=== PATIENT | female | born 1960 | race African-American/Black ===

== ENCOUNTER 2016-12-27 10:19 | Inpatient (IN) | payer MEDICAID ==
[~2016-12-27] VITALS: Ht 167.6 cm; Wt 97.2 kg
[~2016-12-27 10:19] MED LIST: ALBU6.7H INH; AMLO10TA80 PO; ASPI-1158 PO; COR25 PO; FURO-151 PO; FURO40TA5 PO; HYDR100T26 PO; INSU3INS6 SUBCUT; NIFE60TA64 PO; NITR0.4T SL; PANT40TA4 PO; POTA20TA82 PO; SPIR25TA PO; SPIR25TA4 PO
[2016-12-27] MEDS ORDERED: FUROSEMIDE 40MG/4ML VIAL IV STA (11:52)
[2016-12-27] MEDS ORDERED: ASPIRIN 81MG TABLET PO STA (11:52)
[2016-12-27] MEDS ORDERED: NITROGLYCERIN OINT 1GM/INCH UDPKT TD STA (11:52)
[2016-12-27 12:15] LABS: EOSINOPHILS % 0.8 % (0.0-5.0); HEMATOCRIT. 41.8 % (36.0-48.0); HEMOGLOBIN. 13.2 g/dL (12.0-16.0); LYMPHOCYTES % 39.5 % (20.0-50.0); MEAN CORPUSCULAR HEMOGLOBIN 24.5 pg (28.0-32.0); MEAN CORPUSCULAR VOLUME 77.6 fL (81.0-99.0); MEAN PLATELET VOLUME 11.1 fl (7.4-10.4); MONOCYTES % 5.6 % (2.0-8.0); NEUTROPHILS % 53.1 % (40.0-76.0); PLATELET 122 x1000/uL (130-400); RED BLOOD CELL COUNT 5.39 mill/uL (4.2-5.4); RED CELL DISTRIBUTION WIDTH 17.3 % (11.6-14.6)
[2016-12-27 12:20] LABS: CHLORIDE 105 mEq/L (98-107)
[2016-12-27 12:26] LABS: CARBON DIOXIDE 30 mEq/L (21-32)
[2016-12-27 12:31] LABS: TROPONIN I 0.05 ng/mL (0.00-0.04)
[2016-12-27 12:56] LABS: INR 1.1; PARTIAL THROMBOPLASTIN TIME 23.1 sec (23.4-31.0); PROTHROMBIN TIME 11.4 sec (9.4-11.6)
[2016-12-27] MEDS ORDERED: CLONIDINE 0.2MG TABLET PO ONE (14:45)
[2016-12-27] MEDS ORDERED: HYDROCODONE/ACETAMINOPHEN 5/325MG TABLET PO ONE (14:45)
[2016-12-27] MEDS ORDERED: HYDRALAZINE 20MG/ML VIAL IV ONE ×2 (16:30→17:15)
[2016-12-27 18:25] VITALS: BP 152/96
[2016-12-27] MEDS ORDERED: ACETAMINOPHEN 325MG TABLET PO PRN (19:45)
[2016-12-27] MEDS ORDERED: ENOXAPARIN 40MG/0.4ML SYR SUBCUT SCH (19:45)
[2016-12-27] MEDS ORDERED: ONDANSETRON HCL 4MG/2ML VIAL IV PRN (19:45)
[2016-12-27] MEDS ORDERED: HYDROCODONE/ACETAMINOPHEN 5/325MG TABLET PO PRN (19:45)
[2016-12-27] MEDS ORDERED: MAGNESIUM/ALUMINUM HYDROXIDE/SIMETHICONE 30ML UDC PO PRN (19:45)
[2016-12-27] MEDS ORDERED: IPRATROPIUM/ALBUTEROL 0.5-3(2.5)MG/3ML NEB INH PRN (19:45)
[2016-12-27] MEDS ORDERED: CLONIDINE 0.1MG TABLET PO PRN (19:45)
[2016-12-27 20:00] VITALS: BP 181/119
[2016-12-27] MEDS ORDERED: NITROGLYCERIN 0.4MG TABLET SL SL PRN ×2 (20:15→23:30)
[2016-12-27] MEDS ORDERED: DEXTROSE 50% WATER 50ML SYRINGE IV PRN (20:45)
[2016-12-27] MEDS: INSULIN LISPRO 100 UNITS/ML SUBCUT SCH (21:00)
[2016-12-27] MEDS: ASPIRIN 81MG EC TABLET PO SCH (21:09)
[2016-12-27] MEDS: SPIRONOLACTONE 25MG TABLET PO SCH (21:09)
[2016-12-27] MEDS: NIFEDIPINE XL 60MG TAB PO SCH (21:09)
[2016-12-27] MEDS: CARVEDILOL 25MG TABLET PO SCH (21:09)
[2016-12-27] MEDS: HYDRALAZINE HCL 100MG TABLET PO SCH (21:10)
[2016-12-27] MEDS: POTASSIUM CHLORIDE 20MEQ TABLET SR PO SCH (21:10)
[2016-12-27] MEDS: ENOXAPARIN 30MG/0.3ML SYR SUBCUT SCH (21:10)
[2016-12-27] MEDS: BLOOD SUGAR DIAGNOSTIC STRIP TEST SCH (21:11)
[2016-12-27 21:14] VITALS: BP 171/122
[2016-12-27 22:00] VITALS: BP 161/103
[2016-12-27] MEDS ORDERED: HYDRALAZINE 20MG/ML VIAL IV PRN (23:00)
[2016-12-27 23:28] LABS: CREATINE KINASE MB FRACTION 2.4 ng/mL (0.5-3.6); TROPONIN I 0.04 ng/mL (0.00-0.04)
[2016-12-28] VITALS (13 sets, daily range): BP systolic 110–135; BP diastolic 64–97
[2016-12-28 01:09] LABS: CLARITY URINE CLEAR (CLEAR); COLOR URINE YELLOW (YELLOW); GLUCOSE URINE NEGATIVE (NEGATIVE); KETONES URINE NEGATIVE (NEGATIVE); LEUKOCYTE ESTERASE URINE NEGATIVE (NEGATIVE); NITRITE URINE NEGATIVE (NEGATIVE); OCCULT BLOOD URINE NEGATIVE (NEGATIVE); PROTEIN URINE 2+ (NEGATIVE)
[2016-12-28 01:40] LABS: *AMPHETAMINES SCREEN URINE NEGATIVE (NEGATIVE); *BARBITURATES SCREEN URINE NEGATIVE (NEGATIVE); *BENZODIAZEPINES SCREEN URINE NEGATIVE (NEGATIVE); *COCAINE SCREEN URINE NEGATIVE (NEGATIVE); CANNABINOID URINE SCREEN NEGATIVE (NEGATIVE); METHADONE URINE SCREEN NEGATIVE (NEGATIVE); OPIATES URINE SCREEN NEGATIVE (NEGATIVE); PHENCYCLIDINE URINE SCREEN NEGATIVE (NEGATIVE)
[2016-12-28] MEDS: GABAPENTIN 100MG CAPSULE PO SCH ×3 (06:00→21:26)
[2016-12-28] MEDS: HYDRALAZINE HCL 100MG TABLET PO SCH ×3 (06:01→21:26)
[2016-12-28] MEDS: BLOOD SUGAR DIAGNOSTIC STRIP TEST SCH ×4 (06:01→21:27)
[2016-12-28 07:16] LABS: CHLORIDE 104 mEq/L (98-107)
[2016-12-28 07:26] LABS: BASOPHILS % 0.6 % (0.0-2.0); EOSINOPHILS % 1.2 % (0.0-5.0); HEMATOCRIT. 44.4 % (36.0-48.0); HEMOGLOBIN. 13.7 g/dL (12.0-16.0); LYMPHOCYTES % 41.5 % (20.0-50.0); MEAN CORPUSCULAR HEMOGLOBIN 24.5 pg (28.0-32.0); MONOCYTES % 5.9 % (2.0-8.0); NEUTROPHILS % 50.8 % (40.0-76.0); RED BLOOD CELL COUNT 5.62 mill/uL (4.2-5.4); RED CELL DISTRIBUTION WIDTH 17.5 % (11.6-14.6)
[2016-12-28 07:47] LABS: CARBON DIOXIDE 26 mEq/L (21-32); CREATINE KINASE 115 IU/L (26-192); CREATINE KINASE MB FRACTION 2.1 ng/mL (0.5-3.6); HDL CHOLESTEROL 29 mg/dL (40-59); LDL CHOLESTEROL 71 mg/dL (5-100); TROPONIN I 0.04 ng/mL (0.00-0.04)
[2016-12-28] MEDS: POTASSIUM CHLORIDE 20MEQ TABLET SR PO SCH (08:03)
[2016-12-28] MEDS: CARVEDILOL 25MG TABLET PO SCH ×2 (08:03→21:00)
[2016-12-28] MEDS: ASPIRIN 81MG EC TABLET PO SCH (08:03)
[2016-12-28] MEDS: AMLODIPINE 10MG TABLET PO SCH (08:03)
[2016-12-28] MEDS: PANTOPRAZOLE 40MG DR TABLET PO SCH (08:04)
[2016-12-28] MEDS: INSULIN LISPRO 100 UNITS/ML SUBCUT SCH ×4 (08:11→21:36)
[2016-12-28] MEDS: NIFEDIPINE XL 60MG TAB PO SCH (09:00)
[2016-12-28] MEDS ORDERED: FUROSEMIDE 40MG/4ML VIAL IV SCH (09:00)
[2016-12-28] MEDS: SPIRONOLACTONE 25MG TABLET PO SCH (09:00)
[2016-12-28] MEDS: ENOXAPARIN 30MG/0.3ML SYR SUBCUT SCH ×2 (10:01→21:00)
[2016-12-28 13:35] LABS: PLATELET 96 x1000/uL (130-400)
[2016-12-28] MEDS: IPRATROPIUM/ALBUTEROL 0.5-3(2.5)MG/3ML NEB HHN SCH ×2 (16:21→20:01)
[2016-12-28] MEDS: BUDESONIDE 0.5MG/2ML NEB HHN SCH (16:21)
[2016-12-29] VITALS (8 sets, daily range): BP systolic 103–154; BP diastolic 68–102
[2016-12-29] MEDS: IPRATROPIUM/ALBUTEROL 0.5-3(2.5)MG/3ML NEB HHN SCH ×4 (00:11→12:28)
[2016-12-29] MEDS: BUDESONIDE 0.5MG/2ML NEB HHN SCH ×2 (00:11→08:50)
[2016-12-29] MEDS: GABAPENTIN 100MG CAPSULE PO SCH ×2 (05:57→13:04)
[2016-12-29] MEDS: HYDRALAZINE HCL 100MG TABLET PO SCH ×2 (05:58→13:04)
[2016-12-29] MEDS: BLOOD SUGAR DIAGNOSTIC STRIP TEST SCH ×2 (05:58→12:41)
[2016-12-29 07:09] LABS: BASOPHILS % 0.6 % (0.0-2.0); EOSINOPHILS % 1.4 % (0.0-5.0); HEMOGLOBIN. 12.8 g/dL (12.0-16.0); LYMPHOCYTES % 39.8 % (20.0-50.0); MEAN CORPUSCULAR HEMOGLOBIN 24.7 pg (28.0-32.0); MEAN CORPUSCULAR VOLUME 77.1 fL (81.0-99.0); MEAN PLATELET VOLUME 10.5 fl (7.4-10.4); MONOCYTES % 7.9 % (2.0-8.0); NEUTROPHILS % 50.3 % (40.0-76.0); PLATELET 131 x1000/uL (130-400); RED BLOOD CELL COUNT 5.19 mill/uL (4.2-5.4); RED CELL DISTRIBUTION WIDTH 17.1 % (11.6-14.6)
[2016-12-29] MEDS: INSULIN LISPRO 100 UNITS/ML SUBCUT SCH ×2 (07:20→12:21)
[2016-12-29] MEDS: PANTOPRAZOLE 40MG DR TABLET PO SCH (08:03)
[2016-12-29] MEDS: CARVEDILOL 25MG TABLET PO SCH (08:03)
[2016-12-29] MEDS: NIFEDIPINE XL 60MG TAB PO SCH (08:03)
[2016-12-29] MEDS: ASPIRIN 81MG EC TABLET PO SCH (08:03)
[2016-12-29] MEDS: POTASSIUM CHLORIDE 20MEQ TABLET SR PO SCH (08:03)
[2016-12-29] MEDS: AMLODIPINE 10MG TABLET PO SCH (08:03)
[2016-12-29] MEDS: ENOXAPARIN 30MG/0.3ML SYR SUBCUT SCH (08:04)
[2016-12-29] MEDS ORDERED: FUROSEMIDE 40MG/4ML VIAL IV SCH (09:00)
[2016-12-29] MEDS ORDERED: SPIRONOLACTONE 25MG TABLET PO SCH (09:00)
[2016-12-29] MEDS ORDERED: NIFE60TA64 PO (10:05)
[2016-12-29] MEDS ORDERED: SPIR25TA PO (10:05)
[2016-12-29] MEDS ORDERED: GABA-529 PO (10:05)
[2016-12-29] MEDS ORDERED: PULM50 HHN (10:05)
[2016-12-29] MEDS ORDERED: HYDR100T26 PO (10:05)
[2016-12-29] MEDS ORDERED: ASPI-1158 PO (10:05)
[2016-12-29] MEDS ORDERED: COR25 PO (10:05)
[2016-12-29] MEDS ORDERED: FURO-151 PO (10:05)
== END 2016-12-29 13:53 | disposition home or self-care (01) | DRG 133 ==
LOC: ER 13:08 → 3WST 13:26 → EDBEDREQTM 13:30 → EDBEDREQ 13:30 → ENRESERV 15:34
PROVIDERS: ADMIT Internal Medicine; ATTEND Internal Medicine
DX: J96.00 Acute respiratory failure, unspecified whether with hypoxia or hypercapnia (principal); I50.23 Acute on chronic systolic (congestive) heart failure; E11.22 Type 2 diabetes mellitus with diabetic chronic kidney disease; I42.0 Dilated cardiomyopathy; Z99.81 Dependence on supplemental oxygen; J44.1 Chronic obstructive pulmonary disease with (acute) exacerbation; I13.0 Hypertensive heart and chronic kidney disease with heart failure and stage 1 through stage 4 chronic kidney disease, or unspecified chronic kidney disease; G47.33 Obstructive sleep apnea (adult) (pediatric); N18.9 Chronic kidney disease, unspecified; E78.00 Pure hypercholesterolemia, unspecified; E78.5 Hyperlipidemia, unspecified; E87.6 Hypokalemia; F41.9 Anxiety disorder, unspecified; I34.0 Nonrheumatic mitral (valve) insufficiency; Z79.4 Long term (current) use of insulin; Z82.49 Family history of ischemic heart disease and other diseases of the circulatory system; Z83.3 Family history of diabetes mellitus; Z86.73 Personal history of transient ischemic attack (TIA), and cerebral infarction without residual deficits; Z91.19 Patient's noncompliance with other medical treatment and regimen; Z87.891 Personal history of nicotine dependence; Z79.82 Long term (current) use of aspirin; Z79.899 Other long term (current) drug therapy; Z90.49 Acquired absence of other specified parts of digestive tract; Z72.89 Other problems related to lifestyle; Z80.9 Family history of malignant neoplasm, unspecified
CPT/HCPCS: 36415; 71010; 80048; 80053; 80061; 80305; 81001; 82550; 82553; 82962; 83735; 83880; 84443; 84484; 85025; 85610; 85730; 93005; 93970; 94640; 94664; 96374; 96375; 96376; 99285; J0360; J1650; J1815; J1940; J7620; J7626

== ENCOUNTER 2017-02-03 12:39 | Inpatient (IN) | payer MEDICAID ==
[~2017-02-03] VITALS: Ht 167.6 cm; Wt 108.4 kg
[~2017-02-03 12:39] MED LIST changes: -AMLO10TA80 PO; +GABA-529 PO; +PULM50 HHN
[2017-02-03] MEDS ORDERED: NITROGLYCERIN 0.4MG TABLET SL SL ONE (13:15)
[2017-02-03 13:29] LABS: BASOPHILS % 0.6 % (0.0-2.0); EOSINOPHILS % 0.8 % (0.0-5.0); HEMATOCRIT. 36.8 % (36.0-48.0); HEMOGLOBIN. 11.8 g/dL (12.0-16.0); LYMPHOCYTES % 37.4 % (20.0-50.0); MEAN CORPUSCULAR HEMOGLOBIN 24.7 pg (28.0-32.0); MEAN CORPUSCULAR VOLUME 76.7 fL (81.0-99.0); MONOCYTES % 5.3 % (2.0-8.0); NEUTROPHILS % 55.9 % (40.0-76.0); PLATELET 111 x1000/uL (130-400); RED CELL DISTRIBUTION WIDTH 15.6 % (11.6-14.6)
[2017-02-03 13:37] LABS: INR 1.1; PROTHROMBIN TIME 11.5 sec (9.4-11.6)
[2017-02-03 13:49] LABS: CARBON DIOXIDE 25 mEq/L (21-32); CHLORIDE 108 mEq/L (98-107); TROPONIN I 0.03 ng/mL (0.00-0.04)
[2017-02-03] MEDS ORDERED: FUROSEMIDE 40MG/4ML VIAL IVP ONE (14:45)
[2017-02-03 16:15] LABS: BG BASE EXCESS 1.8 mmol/L (-2.0-2.0); BG CARBOXYHEMOGLOBIN 1.2 % (0.5-1.5); BG FRACTION INSPIRED OXYGEN 30; BG HCO3 ACT 25.9 mmol/L (22.0-26.0); BG METHEMOGLOBIN 0.2 % (0.0-1.5); BG OXYHEMOGLOBIN 97.6 % (94.0-97.0); BG PCO2 38.8 mmHg (35.0-45.0); BG PH 7.442 (7.350-7.450); BG PO2 131.4 mmHg (75.0-100.0); BG SAMPLE SITE RIGHT RADIAL; BG TOTAL HEMOGLOBIN 12.7 g/dL (12.0-18.0); BG VENT MODE MASK - CPAP
[2017-02-03] MEDS ORDERED: IPRATROPIUM/ALBUTEROL 0.5-3(2.5)MG/3ML NEB HHN PRN (16:30)
[2017-02-03 16:50] VITALS: BP 155/81
[2017-02-03] MEDS ORDERED: CLONIDINE 0.1MG TABLET PO PRN (17:33)
[2017-02-03 18:15] VITALS: BP 171/132
[2017-02-03 18:21] LABS: CLARITY URINE CLEAR (CLEAR); COLOR URINE YELLOW (YELLOW); GLUCOSE URINE NEGATIVE (NEGATIVE); KETONES URINE NEGATIVE (NEGATIVE); LEUKOCYTE ESTERASE URINE TRACE (NEGATIVE); NITRITE URINE NEGATIVE (NEGATIVE); OCCULT BLOOD URINE NEGATIVE (NEGATIVE); PROTEIN URINE 1+ (NEGATIVE); SPECIFIC GRAVITY URINE 1.009 (1.005-1.030)
[2017-02-03 18:22] VITALS: BP 160/123
[2017-02-03] MEDS: NIFEDIPINE XL 30MG TAB PO SCH (18:24)
[2017-02-03] MEDS: POTASSIUM CHLORIDE 20MEQ TABLET SR PO SCH (18:25)
[2017-02-03 18:35] LABS: *AMPHETAMINES SCREEN URINE NEGATIVE (NEGATIVE); *BARBITURATES SCREEN URINE NEGATIVE (NEGATIVE); *BENZODIAZEPINES SCREEN URINE NEGATIVE (NEGATIVE); *COCAINE SCREEN URINE NEGATIVE (NEGATIVE); CANNABINOID URINE SCREEN NEGATIVE (NEGATIVE); METHADONE URINE SCREEN NEGATIVE (NEGATIVE); OPIATES URINE SCREEN NEGATIVE (NEGATIVE); PHENCYCLIDINE URINE SCREEN NEGATIVE (NEGATIVE)
[2017-02-03] MEDS: ASPIRIN 81MG EC TABLET PO SCH (18:40)
[2017-02-03] MEDS ORDERED: DEXTROSE 50% WATER 50ML SYRINGE IV PRN (18:45)
[2017-02-03 20:00] VITALS: BP 175/118
[2017-02-03] MEDS: IPRATROPIUM/ALBUTEROL 0.5-3(2.5)MG/3ML NEB HHN SCH (20:40)
[2017-02-03] MEDS: BUDESONIDE 0.5MG/2ML NEB HHN SCH (20:40)
[2017-02-03] MEDS ORDERED: HYDROCODONE/ACETAMINOPHEN 5/325MG TABLET PO PRN (21:15)
[2017-02-03] MEDS: ENOXAPARIN 30MG/0.3ML SYR SUBCUT SCH (21:17)
[2017-02-03] MEDS: ACETAMINOPHEN 325MG TABLET PO PRN (21:17)
[2017-02-03] MEDS: BLOOD SUGAR DIAGNOSTIC STRIP TEST SCH (21:18)
[2017-02-03] MEDS: INSULIN LISPRO 100 UNITS/ML SUBCUT SCH (21:29)
[2017-02-03 22:00] VITALS: BP 196/124
[2017-02-03] MEDS: CLONIDINE 0.2MG TABLET PO PRN (22:40)
[2017-02-04] VITALS (12 sets, daily range): BP systolic 120–182; BP diastolic 76–126
[2017-02-04] MEDS ORDERED: HYDRALAZINE 20MG/ML VIAL IV PRN (00:15)
[2017-02-04] MEDS: IPRATROPIUM/ALBUTEROL 0.5-3(2.5)MG/3ML NEB HHN SCH ×4 (02:01→20:19)
[2017-02-04] MEDS: CLONIDINE 0.2MG TABLET PO PRN (06:24)
[2017-02-04 06:59] LABS: BASOPHILS % 0.7 % (0.0-2.0); EOSINOPHILS % 1.6 % (0.0-5.0); HEMATOCRIT. 37.8 % (36.0-48.0); HEMOGLOBIN. 12.1 g/dL (12.0-16.0); MEAN CORPUSCULAR HEMOGLOBIN 24.5 pg (28.0-32.0); MEAN CORPUSCULAR VOLUME 76.8 fL (81.0-99.0); MONOCYTES % 6.3 % (2.0-8.0); NEUTROPHILS % 49.4 % (40.0-76.0); RED BLOOD CELL COUNT 4.92 mill/uL (4.2-5.4); RED CELL DISTRIBUTION WIDTH 15.8 % (11.6-14.6)
[2017-02-04 07:17] LABS: CHLORIDE 107 mEq/L (98-107)
[2017-02-04 07:29] LABS: CARBON DIOXIDE 26 mEq/L (21-32); CREATINE KINASE 119 IU/L (26-192); CREATINE KINASE MB FRACTION 1.9 ng/mL (0.5-3.6); HDL CHOLESTEROL 27 mg/dL (40-59); LDL CHOLESTEROL 54 mg/dL (5-100); TROPONIN I 0.03 ng/mL (0.00-0.04)
[2017-02-04] MEDS: BLOOD SUGAR DIAGNOSTIC STRIP TEST SCH ×4 (07:30→21:26)
[2017-02-04] MEDS: INSULIN LISPRO 100 UNITS/ML SUBCUT SCH ×4 (08:00→21:32)
[2017-02-04] MEDS: BUDESONIDE 0.5MG/2ML NEB HHN SCH ×2 (08:20→20:19)
[2017-02-04] MEDS: POTASSIUM CHLORIDE 20MEQ TABLET SR PO SCH ×2 (09:09→17:03)
[2017-02-04] MEDS: ASPIRIN 81MG EC TABLET PO SCH (09:09)
[2017-02-04] MEDS: NIFEDIPINE XL 30MG TAB PO SCH ×2 (09:09→21:30)
[2017-02-04] MEDS: FUROSEMIDE 40MG/4ML VIAL IVP SCH (09:09)
[2017-02-04] MEDS: ENOXAPARIN 30MG/0.3ML SYR SUBCUT SCH ×2 (09:10→21:34)
[2017-02-04] MEDS: ACETAMINOPHEN 325MG TABLET PO PRN (09:10)
[2017-02-04 09:22] LABS: PLATELET 108 x1000/uL (130-400)
[2017-02-04] MEDS: LOSARTAN POTASSIUM 25 MG TABLET PO SCH (16:13)
[2017-02-04] MEDS ORDERED: NIFEDIPINE XL 30MG TAB PO SCH (21:00)
[2017-02-05] VITALS (12 sets, daily range): BP systolic 139–155; BP diastolic 87–102
[2017-02-05] MEDS: IPRATROPIUM/ALBUTEROL 0.5-3(2.5)MG/3ML NEB HHN SCH ×4 (02:41→20:13)
[2017-02-05] MEDS: BLOOD SUGAR DIAGNOSTIC STRIP TEST SCH ×4 (07:48→20:50)
[2017-02-05] MEDS: INSULIN LISPRO 100 UNITS/ML SUBCUT SCH ×4 (07:48→20:57)
[2017-02-05] MEDS: FUROSEMIDE 40MG/4ML VIAL IVP SCH (08:26)
[2017-02-05] MEDS: NIFEDIPINE XL 30MG TAB PO SCH ×2 (08:27→20:47)
[2017-02-05] MEDS: LOSARTAN POTASSIUM 25 MG TABLET PO SCH ×2 (08:27→20:47)
[2017-02-05] MEDS: ASPIRIN 81MG EC TABLET PO SCH (08:27)
[2017-02-05] MEDS: ENOXAPARIN 30MG/0.3ML SYR SUBCUT SCH ×2 (08:27→20:49)
[2017-02-05] MEDS: POTASSIUM CHLORIDE 20MEQ TABLET SR PO SCH ×2 (08:27→17:36)
[2017-02-05 08:30] LABS: BASOPHILS % 0.2 % (0.0-2.0); EOSINOPHILS % 1.9 % (0.0-5.0); HEMATOCRIT. 36.6 % (36.0-48.0); HEMOGLOBIN. 11.5 g/dL (12.0-16.0); LYMPHOCYTES % 40.1 % (20.0-50.0); MEAN CORPUSCULAR HEMOGLOBIN 24.3 pg (28.0-32.0); MEAN CORPUSCULAR VOLUME 77.2 fL (81.0-99.0); MEAN PLATELET VOLUME 10.6 fl (7.4-10.4); MONOCYTES % 5.9 % (2.0-8.0); NEUTROPHILS % 51.9 % (40.0-76.0); PLATELET 107 x1000/uL (130-400); RED BLOOD CELL COUNT 4.74 mill/uL (4.2-5.4); RED CELL DISTRIBUTION WIDTH 15.6 % (11.6-14.6)
[2017-02-05] MEDS: BUDESONIDE 0.5MG/2ML NEB HHN SCH ×2 (08:48→20:13)
[2017-02-05 09:22] LABS: PHOSPHORUS 4.3 mg/dL (2.5-4.9)
[2017-02-05] MEDS: ISOSORB DINIT/HYDRALAZINE HCL 20/37.5MG TABLET PO SCH (22:56)
[2017-02-06] VITALS (10 sets, daily range): BP systolic 56–160; BP diastolic 42–103
[2017-02-06] MEDS: IPRATROPIUM/ALBUTEROL 0.5-3(2.5)MG/3ML NEB HHN SCH ×3 (02:13→14:14)
[2017-02-06] MEDS: ISOSORB DINIT/HYDRALAZINE HCL 20/37.5MG TABLET PO SCH ×2 (06:31→13:43)
[2017-02-06 06:44] LABS: BASOPHILS % 0.6 % (0.0-2.0); EOSINOPHILS % 1.8 % (0.0-5.0); HEMATOCRIT. 38.1 % (36.0-48.0); HEMOGLOBIN. 12.1 g/dL (12.0-16.0); LYMPHOCYTES % 41.7 % (20.0-50.0); MEAN CORPUSCULAR HEMOGLOBIN 24.5 pg (28.0-32.0); MEAN CORPUSCULAR VOLUME 76.6 fL (81.0-99.0); MONOCYTES % 7.3 % (2.0-8.0); NEUTROPHILS % 48.6 % (40.0-76.0); PLATELET 127 x1000/uL (130-400); RED BLOOD CELL COUNT 4.97 mill/uL (4.2-5.4); RED CELL DISTRIBUTION WIDTH 15.9 % (11.6-14.6)
[2017-02-06 07:14] LABS: PHOSPHORUS 3.8 mg/dL (2.5-4.9)
[2017-02-06] MEDS: BLOOD SUGAR DIAGNOSTIC STRIP TEST SCH ×2 (07:30→12:51)
[2017-02-06] MEDS: FUROSEMIDE 40MG/4ML VIAL IVP SCH (09:23)
[2017-02-06] MEDS: ENOXAPARIN 30MG/0.3ML SYR SUBCUT SCH (09:24)
[2017-02-06] MEDS: LOSARTAN POTASSIUM 25 MG TABLET PO SCH (09:24)
[2017-02-06] MEDS: ASPIRIN 81MG EC TABLET PO SCH (09:24)
[2017-02-06] MEDS: NIFEDIPINE XL 30MG TAB PO SCH (09:26)
[2017-02-06] MEDS: POTASSIUM CHLORIDE 20MEQ TABLET SR PO SCH ×2 (09:27→16:45)
[2017-02-06] MEDS: INSULIN LISPRO 100 UNITS/ML SUBCUT SCH ×2 (09:35→13:44)
[2017-02-06] MEDS: BUDESONIDE 0.5MG/2ML NEB HHN SCH (09:45)
[2017-02-06] MEDS ORDERED: LOSA25TA3 PO (13:26)
[2017-02-06] MEDS ORDERED: NIFE30TA83 PO (13:26)
[2017-02-06] MEDS ORDERED: ISOS1TAB PO (13:26)
[2017-02-06] MEDS ORDERED: FURO-151 PO (13:28)
== END 2017-02-06 17:10 | disposition home or self-care (01) | DRG 133 ==
LOC: ER 12:39 → 5EST 15:31 → ENRESERV 15:31 → EDBEDREQ 16:10 → 5EST 16:56
PROVIDERS: ADMIT Internal Medicine; ATTEND Internal Medicine
PROC: 5A09457 Assistance with Respiratory Ventilation, 24-96 Consecutive Hours, Continuous Positive Airway Pressure (ICD-10-PCS; principal; 2017-02-03)
DX: J96.01 Acute respiratory failure with hypoxia (principal); I50.43 Acute on chronic combined systolic (congestive) and diastolic (congestive) heart failure; E11.22 Type 2 diabetes mellitus with diabetic chronic kidney disease; D69.6 Thrombocytopenia, unspecified; I42.0 Dilated cardiomyopathy; J44.1 Chronic obstructive pulmonary disease with (acute) exacerbation; N18.3 Chronic kidney disease, stage 3 (moderate); E83.42 Hypomagnesemia; E66.9 Obesity, unspecified; E78.00 Pure hypercholesterolemia, unspecified; E78.5 Hyperlipidemia, unspecified; F41.9 Anxiety disorder, unspecified; I34.0 Nonrheumatic mitral (valve) insufficiency; M19.90 Unspecified osteoarthritis, unspecified site; I13.0 Hypertensive heart and chronic kidney disease with heart failure and stage 1 through stage 4 chronic kidney disease, or unspecified chronic kidney disease; Z90.49 Acquired absence of other specified parts of digestive tract; Z88.8 Allergy status to other drugs, medicaments and biological substances; Z79.4 Long term (current) use of insulin; Z79.82 Long term (current) use of aspirin; Z79.899 Other long term (current) drug therapy; Z68.38 Body mass index [BMI] 38.0-38.9, adult; Z98.891 History of uterine scar from previous surgery; Z87.891 Personal history of nicotine dependence; Z86.73 Personal history of transient ischemic attack (TIA), and cerebral infarction without residual deficits; Z82.49 Family history of ischemic heart disease and other diseases of the circulatory system
CPT/HCPCS: 36415; 36600; 71010; 73610; 80048; 80053; 80061; 80305; 81001; 82375; 82550; 82553; 82805; 82962; 83735; 83880; 84100; 84484; 85025; 85379; 85610; 93005; 93306; 93970; 94640; 94660; 96374; 99291; J0360; J1650; J1815; J1940; J7620; J7626

== ENCOUNTER 2017-10-14 17:18 | Observation (INO) | payer MEDICAID ==
[~2017-10-14] VITALS: Ht 167.6 cm; Wt 101.6 kg
[~2017-10-14 17:18] MED LIST changes: -COR25 PO; -FURO40TA5 PO; -HYDR100T26 PO; +ISOS1TAB PO; +LOSA25TA3 PO; +NIFE30TA83 PO; -NIFE60TA64 PO; -SPIR25TA4 PO
[2017-10-14] MEDS ORDERED: METHYLPREDNISOLONE SOD SUCC 125 MG/2 ML VIAL IV STA (18:47)
[2017-10-14 19:00] LABS: CHLORIDE 107 mEq/L (98-107)
[2017-10-14 19:03] LABS: INR 1.1; PROTHROMBIN TIME 11.3 sec (9.4-11.6)
[2017-10-14 19:08] LABS: BASOPHILS % 0.4 % (0.0-2.0); EOSINOPHILS % 1.2 % (0.0-5.0); HEMATOCRIT. 43.2 % (36.0-48.0); HEMOGLOBIN. 13.5 g/dL (12.0-16.0); LYMPHOCYTES % 44.2 % (20.0-50.0); MEAN CORPUSCULAR HEMOGLOBIN 23.6 pg (28.0-32.0); MEAN CORPUSCULAR VOLUME 75.8 fL (81.0-99.0); MEAN PLATELET VOLUME 10.8 fl (7.4-10.4); MONOCYTES % 5.9 % (2.0-8.0); NEUTROPHILS % 48.3 % (40.0-76.0); PLATELET 129 x1000/uL (130-400); RED CELL DISTRIBUTION WIDTH 17.3 % (11.6-14.6)
[2017-10-14] MEDS: ALBUTEROL (0.083%) 2.5MG/3ML NEB HHN SCH ×3 (19:25→21:50)
[2017-10-14] MEDS ORDERED: LABETALOL HCL 20MG/4ML CARPUJECT IV PRN (20:15)
[2017-10-14] MEDS ORDERED: ASPIRIN 325MG EC TABLET PO ONE (20:45)
[2017-10-14] MEDS ORDERED: NITROGLYCERIN 0.2MG/HR PATCH TOP ONE (20:45)
[2017-10-14] MEDS ORDERED: LABETALOL 5MG/ML SYR 20 MG/4 ML SYRINGE IV PRN ×3 (20:58→21:00)
[2017-10-14] MEDS ORDERED: ONDANSETRON HCL 4MG/2ML VIAL IV PRN (23:30)
[2017-10-14] MEDS ORDERED: IPRATROPIUM/ALBUTEROL 0.5-3(2.5)MG/3ML NEB INH PRN (23:30)
[2017-10-14] MEDS ORDERED: NA PHOS,M-B/NA PHOS,DI-BA ENEMA 118ML PR PRN (23:30)
[2017-10-14] MEDS ORDERED: GUAIFENESIN 200MG/10ML SUGAR FREE UDC PO PRN (23:30)
[2017-10-14] MEDS ORDERED: ACETAMINOPHEN 650MG/20.3ML UDC GT PRN (23:30)
[2017-10-14] MEDS ORDERED: ACETAMINOPHEN 325MG TABLET PO PRN (23:30)
[2017-10-14] MEDS ORDERED: DOCUSATE SODIUM 100MG CAPSULE PO PRN (23:30)
[2017-10-14] MEDS ORDERED: MAGNESIUM/ALUMINUM HYDROXIDE/SIMETHICONE 30ML UDC PO PRN (23:30)
[2017-10-14] MEDS ORDERED: ACETAMINOPHEN 650MG SUPP PR PRN (23:30)
[2017-10-14] MEDS: CLONIDINE 0.1MG TABLET PO PRN (23:45)
[2017-10-14] MEDS ORDERED: DEXTROSE 50% WATER 50ML SYRINGE IV PRN (23:45)
[2017-10-14] MEDS ORDERED: ALBUTEROL 6.7GM HFA INHALER INH PRN (23:45)
[2017-10-14] MEDS: HYDROCODONE/ACETAMINOPHEN 5/325MG TABLET PO PRN (23:47)
[2017-10-15] VITALS (8 sets, daily range): BP systolic 143–184; BP diastolic 76–123
[2017-10-15] MEDS ORDERED: POTASSIUM CHLORIDE 20MEQ/PACKET PO NR (01:00)
[2017-10-15] MEDS: GABAPENTIN 100MG CAPSULE PO SCH ×3 (05:34→21:07)
[2017-10-15] MEDS: ISOSORB DINIT/HYDRALAZINE HCL 20/37.5MG TABLET PO SCH ×3 (05:39→21:08)
[2017-10-15 06:18] LABS: HEMATOCRIT. 39.9 % (36.0-48.0); HEMOGLOBIN. 12.4 g/dL (12.0-16.0); MEAN CORPUSCULAR HEMOGLOBIN 23.8 pg (28.0-32.0); MEAN CORPUSCULAR VOLUME 76.6 fL (81.0-99.0); MEAN PLATELET VOLUME 10.3 fl (7.4-10.4); PLATELET 102 x1000/uL (130-400); RED BLOOD CELL COUNT 5.21 mill/uL (4.2-5.4); RED CELL DISTRIBUTION WIDTH 17.7 % (11.6-14.6)
[2017-10-15 06:55] LABS: CHLORIDE 109 mEq/L (98-107)
[2017-10-15 07:17] LABS: LDL CHOLESTEROL 67 mg/dL (5-100)
[2017-10-15 07:18] LABS: CREATINE KINASE 137 IU/L (26-192); CREATINE KINASE MB FRACTION 2.5 ng/mL (0.5-3.6)
[2017-10-15 07:19] LABS: HDL CHOLESTEROL 27 mg/dL (40-59); T4 FREE 1.03 ng/dL (0.76-1.46)
[2017-10-15] MEDS: BLOOD SUGAR DIAGNOSTIC STRIP TEST SCH ×4 (07:20→21:08)
[2017-10-15 07:59] LABS: NUCLEATED RED BLOOD CELLS 1 /100 WBC; PLATELET ESTIMATE DECREASED
[2017-10-15] MEDS: ASPIRIN 81MG TABLET PO SCH (08:47)
[2017-10-15] MEDS: INSULIN LISPRO 100 UNITS/ML SUBCUT SCH ×4 (08:49→21:11)
[2017-10-15] MEDS ORDERED: LOSARTAN POTASSIUM 25 MG TABLET PO SCH (09:00)
[2017-10-15 09:12] LABS: BG BASE EXCESS -2.4 mmol/L (-2.0-2.0); BG CARBOXYHEMOGLOBIN 0.8 % (0.5-1.5); BG FRACTION INSPIRED OXYGEN 21; BG HCO3 ACT 22.6 mmol/L (22.0-26.0); BG METHEMOGLOBIN 0.2 % (0.0-1.5); BG OXYGEN SATURATION 91.9 % (92.0-98.5); BG PCO2 39.6 mmHg (35.0-45.0); BG PH 7.374 (7.350-7.450); BG PO2 66.9 mmHg (75.0-100.0); BG SAMPLE SITE LEFT RADIAL; BG TOTAL HEMOGLOBIN 12.9 g/dL (12.0-18.0); BG VENT MODE ROOM AIR
[2017-10-15] MEDS: HYDROCODONE/ACETAMINOPHEN 5/325MG TABLET PO PRN ×2 (12:32→16:10)
[2017-10-15] MEDS: CLONIDINE 0.1MG TABLET PO PRN (12:32)
[2017-10-15] MEDS: BUDESONIDE 0.5MG/2ML NEB HHN SCH ×2 (12:59→19:39)
[2017-10-15] MEDS: FUROSEMIDE 40MG/4ML VIAL IVP SCH ×2 (13:38→17:57)
[2017-10-15] MEDS ORDERED: MEDICATION NOT ON FORMULARY EA (Gabapentin 100 MG) PO SCH (14:00)
[2017-10-15 15:50] LABS: *AMPHETAMINES SCREEN URINE NEGATIVE (NEGATIVE); CLARITY URINE CLEAR (CLEAR); COLOR URINE YELLOW (YELLOW); KETONES URINE NEGATIVE (NEGATIVE); LEUKOCYTE ESTERASE URINE TRACE (NEGATIVE); NITRITE URINE NEGATIVE (NEGATIVE); OCCULT BLOOD URINE NEGATIVE (NEGATIVE); PROTEIN URINE 3+ (NEGATIVE); SPECIFIC GRAVITY URINE 1.013 (1.005-1.030)
[2017-10-15 15:51] LABS: *BARBITURATES SCREEN URINE NEGATIVE (NEGATIVE); *BENZODIAZEPINES SCREEN URINE NEGATIVE (NEGATIVE); *COCAINE SCREEN URINE NEGATIVE (NEGATIVE); CANNABINOID URINE SCREEN NEGATIVE (NEGATIVE); METHADONE URINE SCREEN NEGATIVE (NEGATIVE); OPIATES URINE SCREEN PRESUMTIVE POSITIVE (NEGATIVE); PHENCYCLIDINE URINE SCREEN NEGATIVE (NEGATIVE)
[2017-10-15] MEDS ORDERED: MEDICATION NOT ON FORMULARY EA (Insulin Glargine,Hum.rec.anlog (Lantus Solostar) 30 UNIT SUBCUT SCH (17:00)
[2017-10-15 17:47] LABS: PHOSPHORUS 3.9 mg/dL (2.5-4.9)
[2017-10-15 17:52] LABS: CREATINE KINASE MB FRACTION 2.8 ng/mL (0.5-3.6)
[2017-10-15] MEDS: METHYLPREDNISOLONE SOD SUCC 40 MG/ML VIAL IV SCH (17:57)
[2017-10-15 18:16] LABS: HEPATITIS B SURFACE ANTIGEN NEGATIVE
[2017-10-15 18:44] LABS: HEPATITIS B CORE AB IGM NEGATIVE
[2017-10-15 18:45] LABS: HEPATITIS A AB IGM NEGATIVE (NEGATIVE)
[2017-10-15] MEDS: IPRATROPIUM/ALBUTEROL 0.5-3(2.5)MG/3ML NEB INH SCH ×2 (19:40→23:50)
[2017-10-15] MEDS ORDERED: MEDICATION NOT ON FORMULARY EA (Losartan Potassium (Cozaar) 25 MG) PO SCH (21:00)
[2017-10-15] MEDS ORDERED: NIFEDIPINE 30 MG PO SCH (21:00)
[2017-10-15] MEDS: LOSARTAN POTASSIUM 50 MG TABLET PO SCH (21:07)
[2017-10-15] MEDS: NIFEDIPINE XL 30MG TAB PO SCH (21:07)
[2017-10-15] MEDS: INSULIN GLARGINE UD 100 UNITS/ML SYR SUBCUT SCH (21:10)
[2017-10-16] VITALS: BP 141/79
[2017-10-16] MEDS: METHYLPREDNISOLONE SOD SUCC 40 MG/ML VIAL IV SCH ×2 (00:31→08:29)
[2017-10-16] MEDS: IPRATROPIUM/ALBUTEROL 0.5-3(2.5)MG/3ML NEB INH SCH ×5 (03:10→19:46)
[2017-10-16 04:00] VITALS: BP 140/70
[2017-10-16] MEDS: PANTOPRAZOLE 40MG DR TABLET PO SCH (06:23)
[2017-10-16] MEDS: GABAPENTIN 100MG CAPSULE PO SCH ×3 (06:24→21:28)
[2017-10-16] MEDS: BLOOD SUGAR DIAGNOSTIC STRIP TEST SCH ×4 (06:27→21:00)
[2017-10-16] MEDS: ISOSORB DINIT/HYDRALAZINE HCL 20/37.5MG TABLET PO SCH ×3 (06:27→21:28)
[2017-10-16] MEDS: FUROSEMIDE 40MG/4ML VIAL IVP SCH ×2 (06:51→17:34)
[2017-10-16 07:08] LABS: BASOPHILS % 0.1 % (0.0-2.0); HEMATOCRIT. 38.9 % (36.0-48.0); HEMOGLOBIN. 12.1 g/dL (12.0-16.0); LYMPHOCYTES % 9.9 % (20.0-50.0); MEAN CORPUSCULAR HEMOGLOBIN 23.7 pg (28.0-32.0); MEAN CORPUSCULAR VOLUME 76.1 fL (81.0-99.0); MEAN PLATELET VOLUME 10.8 fl (7.4-10.4); MONOCYTES % 1.5 % (2.0-8.0); NEUTROPHILS % 88.5 % (40.0-76.0); PLATELET 122 x1000/uL (130-400); RED BLOOD CELL COUNT 5.11 mill/uL (4.2-5.4); RED CELL DISTRIBUTION WIDTH 17.6 % (11.6-14.6)
[2017-10-16] MEDS: ASPIRIN 81MG TABLET PO SCH (08:29)
[2017-10-16] MEDS: NIFEDIPINE XL 30MG TAB PO SCH ×2 (08:29→21:27)
[2017-10-16] MEDS: LOSARTAN POTASSIUM 50 MG TABLET PO SCH ×2 (08:29→21:26)
[2017-10-16] MEDS: SPIRONOLACTONE 25MG TABLET PO SCH (08:29)
[2017-10-16] MEDS: INSULIN LISPRO 100 UNITS/ML SUBCUT SCH ×4 (08:31→21:29)
[2017-10-16] MEDS ORDERED: SPIRONOLACTONE 25 MG PO SCH (09:00)
[2017-10-16] MEDS ORDERED: MEDICATION NOT ON FORMULARY EA (Pantoprazole Sodium 40 MG) PO SCH (09:00)
[2017-10-16] MEDS ORDERED: FUROSEMIDE PO SCH (09:00)
[2017-10-16] MEDS: BUDESONIDE 0.5MG/2ML NEB HHN SCH ×2 (09:14→19:46)
[2017-10-16 10:41] VITALS: BP 154/98
[2017-10-16 12:05] VITALS: BP 140/83
[2017-10-16 17:08] VITALS: BP 138/91
[2017-10-16 20:00] VITALS: BP 142/86
[2017-10-16] MEDS: INSULIN GLARGINE UD 100 UNITS/ML SYR SUBCUT SCH (21:30)
[2017-10-17] VITALS (7 sets, daily range): BP systolic 117–147; BP diastolic 66–96
[2017-10-17] MEDS: IPRATROPIUM/ALBUTEROL 0.5-3(2.5)MG/3ML NEB INH SCH ×6 (01:23→19:56)
[2017-10-17] MEDS: PANTOPRAZOLE 40MG DR TABLET PO SCH (06:36)
[2017-10-17] MEDS: GABAPENTIN 100MG CAPSULE PO SCH ×3 (06:38→22:25)
[2017-10-17] MEDS: ISOSORB DINIT/HYDRALAZINE HCL 20/37.5MG TABLET PO SCH (06:38)
[2017-10-17] MEDS: BLOOD SUGAR DIAGNOSTIC STRIP TEST SCH ×4 (06:39→21:00)
[2017-10-17] MEDS: FUROSEMIDE 40MG/4ML VIAL IVP SCH ×2 (06:56→17:52)
[2017-10-17 07:28] LABS: BASOPHILS % 0.2 % (0.0-2.0); EOSINOPHILS % 0.1 % (0.0-5.0); HEMATOCRIT. 39.8 % (36.0-48.0); HEMOGLOBIN. 12.6 g/dL (12.0-16.0); LYMPHOCYTES % 25.3 % (20.0-50.0); MEAN CORPUSCULAR HEMOGLOBIN 23.8 pg (28.0-32.0); MEAN CORPUSCULAR VOLUME 75.2 fL (81.0-99.0); MEAN PLATELET VOLUME 10.5 fl (7.4-10.4); MONOCYTES % 4.9 % (2.0-8.0); NEUTROPHILS % 69.5 % (40.0-76.0); PLATELET 145 x1000/uL (130-400); RED CELL DISTRIBUTION WIDTH 17.6 % (11.6-14.6)
[2017-10-17] MEDS: INSULIN LISPRO 100 UNITS/ML SUBCUT SCH ×4 (07:45→22:28)
[2017-10-17] MEDS: BUDESONIDE 0.5MG/2ML NEB HHN SCH ×2 (07:56→19:56)
[2017-10-17] MEDS: PREDNISONE 20MG TABLET PO SCH (08:26)
[2017-10-17] MEDS: NIFEDIPINE XL 30MG TAB PO SCH ×2 (08:27→22:25)
[2017-10-17] MEDS: ASPIRIN 81MG TABLET PO SCH (08:28)
[2017-10-17] MEDS: LOSARTAN POTASSIUM 50 MG TABLET PO SCH ×2 (08:28→22:25)
[2017-10-17] MEDS: SPIRONOLACTONE 25MG TABLET PO SCH (08:28)
[2017-10-17] MEDS: POTASSIUM CHLORIDE 20MEQ TABLET SR PO SCH (10:59)
[2017-10-17] MEDS: HYDROCODONE/ACETAMINOPHEN 5/325MG TABLET PO PRN (11:05)
[2017-10-17 13:07] LABS: MICROALBUMIN RANDOM URINE 1694.7 ug/mL (Not Estab.)
[2017-10-17] MEDS: INSULIN GLARGINE UD 100 UNITS/ML SYR SUBCUT SCH (22:28)
[2017-10-18] VITALS: BP_SYST 147; BP_SYST 153; BP_SYST 154; BP_DIAS 89; BP_DIAS 96; BP_DIAS 98
[2017-10-18] MEDS: IPRATROPIUM/ALBUTEROL 0.5-3(2.5)MG/3ML NEB INH SCH ×3 (00:27→10:10)
[2017-10-18 04:00] VITALS: BP 149/99
[2017-10-18 06:11] LABS: ANTI-NUCLEAR ANTIBODIES DIRECT Negative (Negative); COMPLEMENT C3 97 mg/dL (82-167)
[2017-10-18] MEDS: BLOOD SUGAR DIAGNOSTIC STRIP TEST SCH ×2 (06:34→12:52)
[2017-10-18] MEDS: GABAPENTIN 100MG CAPSULE PO SCH ×2 (06:55→13:00)
[2017-10-18] MEDS: PANTOPRAZOLE 40MG DR TABLET PO SCH ×2 (06:55→08:20)
[2017-10-18] MEDS: INSULIN LISPRO 100 UNITS/ML SUBCUT SCH ×2 (07:25→13:06)
[2017-10-18 07:37] LABS: PHOSPHORUS 4.4 mg/dL (2.5-4.9)
[2017-10-18 07:39] LABS: BASOPHILS % 0.2 % (0.0-2.0); EOSINOPHILS % 0.3 % (0.0-5.0); HEMATOCRIT. 43.4 % (36.0-48.0); HEMOGLOBIN. 13.6 g/dL (12.0-16.0); LYMPHOCYTES % 28.4 % (20.0-50.0); MEAN CORPUSCULAR HEMOGLOBIN 23.7 pg (28.0-32.0); MEAN CORPUSCULAR VOLUME 75.5 fL (81.0-99.0); MEAN PLATELET VOLUME 10.4 fl (7.4-10.4); NEUTROPHILS % 63.1 % (40.0-76.0); PLATELET 149 x1000/uL (130-400); RED BLOOD CELL COUNT 5.74 mill/uL (4.2-5.4); RED CELL DISTRIBUTION WIDTH 17.4 % (11.6-14.6)
[2017-10-18 07:50] VITALS: BP_SYST 134; BP_SYST 141; BP_DIAS 86; BP_DIAS 91
[2017-10-18 07:51] VITALS: BP 140/94
[2017-10-18] MEDS: FUROSEMIDE 40MG/4ML VIAL IVP SCH (08:17)
[2017-10-18] MEDS: POTASSIUM CHLORIDE 20MEQ TABLET SR PO SCH (08:18)
[2017-10-18] MEDS: LOSARTAN POTASSIUM 50 MG TABLET PO SCH (08:18)
[2017-10-18] MEDS: NIFEDIPINE XL 30MG TAB PO SCH (08:18)
[2017-10-18] MEDS: ASPIRIN 81MG TABLET PO SCH (08:18)
[2017-10-18] MEDS: HYDROCODONE/ACETAMINOPHEN 5/325MG TABLET PO PRN (08:19)
[2017-10-18] MEDS: SPIRONOLACTONE 25MG TABLET PO SCH (08:20)
[2017-10-18] MEDS: PREDNISONE 20MG TABLET PO SCH (08:20)
[2017-10-18 12:09] VITALS: BP 151/97
[2017-10-18] MEDS ORDERED: LOSA50TA3 PO (13:36)
[2017-10-18] MEDS ORDERED: INSLIS SUBCUT (13:36)
[2017-10-18] MEDS ORDERED: FURO10VI3 PO (13:36)
[2017-10-18] MEDS ORDERED: ASPI-1160 PO (13:36)
[2017-10-18] MEDS ORDERED: PANT40TA4 PO (13:36)
[2017-10-18] MEDS ORDERED: SPIR25TA PO (13:36)
[2017-10-18] MEDS ORDERED: POTA20TA82 PO (13:36)
[2017-10-18] MEDS ORDERED: NIFE30TA83 PO (13:36)
[2017-10-18] MEDS ORDERED: P20 PO (13:36)
[2017-10-18] MEDS ORDERED: GABA-529 PO (13:36)
[2017-10-18] MEDS ORDERED: LANTUSUD SUBCUT (13:36)
[2017-10-18 14:24] VITALS: BP 151/97
== END 2017-10-18 15:15 | disposition home or self-care (01) ==
LOC: ER 17:18 → EDBEDREQ 20:40 → EDBEDREQTM 20:40 → ENRESERV 21:40 → 6WST 23:03 → INTOOBSV 23:03
PROVIDERS: ADMIT Internal Medicine; ATTEND Internal Medicine
DX: E87.70 Fluid overload, unspecified (principal); J96.00 Acute respiratory failure, unspecified whether with hypoxia or hypercapnia; E11.22 Type 2 diabetes mellitus with diabetic chronic kidney disease; I13.0 Hypertensive heart and chronic kidney disease with heart failure and stage 1 through stage 4 chronic kidney disease, or unspecified chronic kidney disease; N18.9 Chronic kidney disease, unspecified; I50.23 Acute on chronic systolic (congestive) heart failure; E78.5 Hyperlipidemia, unspecified; I25.10 Atherosclerotic heart disease of native coronary artery without angina pectoris; F41.9 Anxiety disorder, unspecified; J44.1 Chronic obstructive pulmonary disease with (acute) exacerbation; E87.6 Hypokalemia; D69.6 Thrombocytopenia, unspecified; E11.319 Type 2 diabetes mellitus with unspecified diabetic retinopathy without macular edema; E66.01 Morbid (severe) obesity due to excess calories; N39.0 Urinary tract infection, site not specified; R80.9 Proteinuria, unspecified; N17.9 Acute kidney failure, unspecified; I42.0 Dilated cardiomyopathy; G47.33 Obstructive sleep apnea (adult) (pediatric); E44.0 Moderate protein-calorie malnutrition; Z86.73 Personal history of transient ischemic attack (TIA), and cerebral infarction without residual deficits; Z87.891 Personal history of nicotine dependence; Z79.899 Other long term (current) drug therapy
CPT/HCPCS: 36415; 36600; 71045; 76770; 80048; 80053; 80061; 80305; 81003; 82043; 82375; 82550; 82553; 82570; 82805; 82962; 83735; 83880; 84100; 84156; 84439; 84443; 84481; 84484; 85025; 85610; 86038; 86160; 93005; 93306; 94640; 94660; 96372; 96374; 96375; 96376; 99285; G0378; J1815; J1940; J2920; J2930; J7512; J7611; J7620; 86705; 86709; 86803; 87340; J7626

== ENCOUNTER 2018-10-09 20:22 | Inpatient (IN) | payer BC, MEDICAID ==
[~2018-10-09] VITALS: Ht 167.6 cm; Wt 94.8 kg
[~2018-10-09 20:22] MED LIST changes: -ASPI-1158 PO; +ASPI-1160 PO; -FURO-151 PO; +FURO10VI3 PO; +INSLIS SUBCUT; -INSU3INS6 SUBCUT; +LANTUSUD SUBCUT; -LOSA25TA3 PO; +LOSA50TA3 PO; +P20 PO
[2018-10-09 21:11] LABS: BASOPHILS % 1.1 % (0.0-2.0); EOSINOPHILS % 1.2 % (0.0-5.0); HEMOGLOBIN. 13.3 g/dL (12.0-16.0); LYMPHOCYTES % 41.8 % (20.0-50.0); MEAN CORPUSCULAR HEMOGLOBIN 26.4 pg (28.0-32.0); MEAN CORPUSCULAR VOLUME 81.3 fL (81.0-99.0); MEAN PLATELET VOLUME 10.4 fl (7.4-10.4); MONOCYTES % 5.6 % (2.0-8.0); NEUTROPHILS % 50.3 % (40.0-76.0); PLATELET 109 x1000/uL (130-400); RED BLOOD CELL COUNT 5.05 mill/uL (4.2-5.4); RED CELL DISTRIBUTION WIDTH 13.7 % (11.6-14.6)
[2018-10-09 21:16] LABS: CHLORIDE 107 mEq/L (98-107)
[2018-10-09 21:18] LABS: PROTHROMBIN TIME 10.6 sec (9.6-11.0)
[2018-10-09] MEDS ORDERED: FUROSEMIDE 40MG/4ML VIAL IVP ONE (21:45)
[2018-10-09] MEDS ORDERED: ASPIRIN 81MG TABLET PO ONE (21:45)
[2018-10-09] MEDS ORDERED: POTASSIUM CHLORIDE 20MEQ TABLET SR PO ONE (21:45)
[2018-10-09] MEDS ORDERED: HYDRALAZINE 20MG/ML VIAL IV NR (22:30)
[2018-10-09] MEDS ORDERED: NITROGLYCERIN OINT 1GM/INCH UDPKT TD NR (22:30)
[2018-10-10] MEDS ORDERED: MORPHINE SULFATE 4 MG/ML CPJ (NOT FOR IM USE) IV ONE
[2018-10-10 04:00] VITALS: BP 151/98
[2018-10-10 04:59] VITALS: BP 151/98
[2018-10-10] MEDS ORDERED: DEXTROSE 50% WATER 50ML SYRINGE IV PRN (06:00)
[2018-10-10] MEDS ORDERED: CLONIDINE 0.1MG TABLET PO PRN (06:00)
[2018-10-10] MEDS: BLOOD SUGAR DIAGNOSTIC STRIP TEST SCH ×4 (06:13→21:00)
[2018-10-10] MEDS: HYDROCODONE/ACETAMINOPHEN 5/325MG TABLET PO PRN ×2 (06:13→18:42)
[2018-10-10] MEDS: INSULIN LISPRO 100 UNITS/ML SUBCUT SCH ×4 (06:30→21:01)
[2018-10-10 08:42] LABS: BASOPHILS % 0.5 % (0.0-2.0); EOSINOPHILS % 1.3 % (0.0-5.0); HEMATOCRIT. 41.2 % (36.0-48.0); HEMOGLOBIN. 13.4 g/dL (12.0-16.0); LYMPHOCYTES % 44.1 % (20.0-50.0); MEAN CORPUSCULAR HEMOGLOBIN 26.6 pg (28.0-32.0); MEAN PLATELET VOLUME 10.7 fl (7.4-10.4); MONOCYTES % 7.7 % (2.0-8.0); NEUTROPHILS % 46.4 % (40.0-76.0); PLATELET 112 x1000/uL (130-400); RED BLOOD CELL COUNT 5.03 mill/uL (4.2-5.4); RED CELL DISTRIBUTION WIDTH 13.7 % (11.6-14.6)
[2018-10-10 09:03] LABS: CHLORIDE 107 mEq/L (98-107)
[2018-10-10] MEDS: FUROSEMIDE 40MG/4ML VIAL IVP SCH (09:47)
[2018-10-10 12:00] VITALS: BP 151/100
[2018-10-10] MEDS: POTASSIUM CHLORIDE 20MEQ TABLET SR PO SCH (14:27)
[2018-10-10] MEDS: LOSARTAN POTASSIUM 50 MG TABLET PO SCH (14:27)
[2018-10-10] MEDS: ISOSORBIDE MONONITRATE 30MG TABLET SR 24HR PO SCH (14:27)
[2018-10-10 16:00] VITALS: BP 141/57
[2018-10-10 20:00] VITALS: BP 156/99
[2018-10-10] MEDS: CARVEDILOL 6.25 MG TABLET PO SCH (20:39)
[2018-10-10] MEDS: ENOXAPARIN 30MG/0.3ML SYR SUBCUT SCH (20:39)
[2018-10-10] MEDS ORDERED: INSULIN GLARGINE UD 100 UNITS/ML SYR SUBCUT SCH (22:00)
[2018-10-11] VITALS: BP 140/91
[2018-10-11 04:00] VITALS: BP 143/87
[2018-10-11 05:49] LABS: BASOPHILS % 0.6 % (0.0-2.0); EOSINOPHILS % 1.4 % (0.0-5.0); HEMOGLOBIN. 13.4 g/dL (12.0-16.0); MEAN CORPUSCULAR HEMOGLOBIN 26.9 pg (28.0-32.0); MEAN CORPUSCULAR VOLUME 82.1 fL (81.0-99.0); MEAN PLATELET VOLUME 11.1 fl (7.4-10.4); MONOCYTES % 8.2 % (2.0-8.0); NEUTROPHILS % 47.8 % (40.0-76.0); PLATELET 112 x1000/uL (130-400); RED BLOOD CELL COUNT 4.99 mill/uL (4.2-5.4)
[2018-10-11 06:02] LABS: PHOSPHORUS 3.9 mg/dL (2.5-4.9)
[2018-10-11] MEDS: BLOOD SUGAR DIAGNOSTIC STRIP TEST SCH ×4 (06:18→21:26)
[2018-10-11] MEDS: INSULIN LISPRO 100 UNITS/ML SUBCUT SCH ×4 (06:21→21:25)
[2018-10-11 08:00] VITALS: BP 164/101
[2018-10-11] MEDS: ISOSORBIDE MONONITRATE 30MG TABLET SR 24HR PO SCH (08:20)
[2018-10-11] MEDS: CARVEDILOL 6.25 MG TABLET PO SCH (08:20)
[2018-10-11] MEDS: ENOXAPARIN 30MG/0.3ML SYR SUBCUT SCH ×2 (08:20→21:14)
[2018-10-11] MEDS: LOSARTAN POTASSIUM 50 MG TABLET PO SCH (08:21)
[2018-10-11] MEDS: FUROSEMIDE 40MG/4ML VIAL IVP SCH (08:21)
[2018-10-11] MEDS: POTASSIUM CHLORIDE 20MEQ TABLET SR PO SCH (08:21)
[2018-10-11] MEDS: ASPIRIN 81MG TABLET PO SCH (08:21)
[2018-10-11] MEDS: AMLODIPINE 2.5MG TABLET PO SCH ×2 (10:49→21:15)
[2018-10-11 10:50] LABS: CREATINE KINASE 66 IU/L (26-192)
[2018-10-11] MEDS: INSULIN GLARGINE UD 100 UNITS/ML SYR SUBCUT SCH ×2 (10:51→21:26)
[2018-10-11 12:00] VITALS: BP 131/83
[2018-10-11] MEDS: HYDROCODONE/ACETAMINOPHEN 5/325MG TABLET PO PRN (12:40)
[2018-10-11 16:00] VITALS: BP 150/92
[2018-10-11 16:52] LABS: CLARITY URINE CLEAR (CLEAR); COLOR URINE YELLOW (YELLOW); KETONES URINE NEGATIVE (NEGATIVE); LEUKOCYTE ESTERASE URINE TRACE (NEGATIVE); NITRITE URINE NEGATIVE (NEGATIVE); OCCULT BLOOD URINE NEGATIVE (NEGATIVE); PROTEIN URINE 1+ (NEGATIVE); UROBILINOGEN URINE 0.2 E.U./dL (0.2-1.0)
[2018-10-11 17:12] LABS: *AMPHETAMINES SCREEN URINE NEGATIVE (NEGATIVE); *BARBITURATES SCREEN URINE NEGATIVE (NEGATIVE); *BENZODIAZEPINES SCREEN URINE NEGATIVE (NEGATIVE); *COCAINE SCREEN URINE NEGATIVE (NEGATIVE)
[2018-10-11 17:13] LABS: CANNABINOID URINE SCREEN NEGATIVE (NEGATIVE); METHADONE URINE SCREEN NEGATIVE (NEGATIVE); OPIATES URINE SCREEN NEGATIVE (NEGATIVE); PHENCYCLIDINE URINE SCREEN NEGATIVE (NEGATIVE)
[2018-10-11] MEDS ORDERED: LOSA100T32 PO (19:11)
[2018-10-11] MEDS ORDERED: METF500T PO (19:12)
[2018-10-11] MEDS ORDERED: ATOR20TA65 PO (19:15)
[2018-10-11] MEDS ORDERED: GLIP10TA10 PO (19:16)
[2018-10-11] MEDS ORDERED: LATA2.5D2 OP (19:18)
[2018-10-11] MEDS ORDERED: AMLO5TAB88 PO (19:19)
[2018-10-11 20:00] VITALS: BP 174/102
[2018-10-11] MEDS: CARVEDILOL 25MG TABLET PO SCH (21:20)
[2018-10-12] VITALS: BP 181/119
[2018-10-12 04:00] VITALS: BP 148/93
[2018-10-12 06:33] LABS: BASOPHILS % 0.4 % (0.0-2.0); EOSINOPHILS % 1.2 % (0.0-5.0); HEMATOCRIT. 40.7 % (36.0-48.0); HEMOGLOBIN. 13.5 g/dL (12.0-16.0); LYMPHOCYTES % 41.1 % (20.0-50.0); MEAN CORPUSCULAR HEMOGLOBIN 27.1 pg (28.0-32.0); MEAN CORPUSCULAR VOLUME 81.7 fL (81.0-99.0); MEAN PLATELET VOLUME 10.9 fl (7.4-10.4); MONOCYTES % 7.9 % (2.0-8.0); NEUTROPHILS % 49.4 % (40.0-76.0); PLATELET 107 x1000/uL (130-400); RED BLOOD CELL COUNT 4.98 mill/uL (4.2-5.4); RED CELL DISTRIBUTION WIDTH 13.6 % (11.6-14.6)
[2018-10-12] MEDS: INSULIN LISPRO 100 UNITS/ML SUBCUT SCH ×3 (06:33→17:04)
[2018-10-12] MEDS: BLOOD SUGAR DIAGNOSTIC STRIP TEST SCH ×3 (06:33→16:42)
[2018-10-12 08:00] VITALS: BP 147/92
[2018-10-12] MEDS: ENOXAPARIN 30MG/0.3ML SYR SUBCUT SCH (08:18)
[2018-10-12] MEDS: POTASSIUM CHLORIDE 20MEQ TABLET SR PO SCH (08:19)
[2018-10-12] MEDS: ASPIRIN 81MG TABLET PO SCH (08:19)
[2018-10-12] MEDS: ISOSORBIDE MONONITRATE 30MG TABLET SR 24HR PO SCH (08:19)
[2018-10-12] MEDS: AMLODIPINE 2.5MG TABLET PO SCH (08:20)
[2018-10-12] MEDS: CARVEDILOL 25MG TABLET PO SCH (08:20)
[2018-10-12] MEDS: FUROSEMIDE 40MG/4ML VIAL IVP SCH (08:22)
[2018-10-12] MEDS: INSULIN GLARGINE UD 100 UNITS/ML SYR SUBCUT SCH (09:35)
[2018-10-12] MEDS ORDERED: ACETAMINOPHEN 325MG TABLET PO PRN (10:30)
[2018-10-12 12:00] VITALS: BP 120/77
[2018-10-12 16:00] VITALS: BP 136/86
[2018-10-12] MEDS ORDERED: LANTUSUD SUBCUT (18:32)
[2018-10-12] MEDS ORDERED: COR25 PO (18:32)
[2018-10-12] MEDS ORDERED: AMLO5TAB88 PO (18:32)
[2018-10-12 19:38] VITALS: BP 140/87
[2018-10-12] MEDS ORDERED: AMLODIPINE 5MG TABLET PO SCH (21:00)
== END 2018-10-12 20:45 | disposition home or self-care (01) | DRG 291 ==
LOC: ER 20:22 → EDBEDREQ 20:49 → 8WST 10-10 03:00 → EDBEDREQDT 10-10 03:01 → EDBEDREQTM 10-10 03:01 → EDBEDREQ 10-10 03:01 → ENRESERV 10-10 03:50
PROVIDERS: ADMIT Internal Medicine; ATTEND Internal Medicine
DX: I13.0 Hypertensive heart and chronic kidney disease with heart failure and stage 1 through stage 4 chronic kidney disease, or unspecified chronic kidney disease (principal); I50.23 Acute on chronic systolic (congestive) heart failure; I16.1 Hypertensive emergency; N17.9 Acute kidney failure, unspecified; E11.65 Type 2 diabetes mellitus with hyperglycemia; D64.9 Anemia, unspecified; E11.22 Type 2 diabetes mellitus with diabetic chronic kidney disease; E66.9 Obesity, unspecified; E78.00 Pure hypercholesterolemia, unspecified; F41.9 Anxiety disorder, unspecified; I34.0 Nonrheumatic mitral (valve) insufficiency; I42.9 Cardiomyopathy, unspecified; I45.81 Long QT syndrome; J44.9 Chronic obstructive pulmonary disease, unspecified; N18.9 Chronic kidney disease, unspecified; Z51.5 Encounter for palliative care; Z79.4 Long term (current) use of insulin; Z86.73 Personal history of transient ischemic attack (TIA), and cerebral infarction without residual deficits; Z88.8 Allergy status to other drugs, medicaments and biological substances; Z79.899 Other long term (current) drug therapy; I25.2 Old myocardial infarction; Z68.33 Body mass index [BMI] 33.0-33.9, adult
CPT/HCPCS: 36415; 71045; 76700; 80048; 80305; 82550; 82962; 83036; 83735; 83880; 84100; 84443; 84484; 93005; 93306; 96374; 96375; 99291; J0360; J1650; J1815; J1940

== ENCOUNTER 2019-01-03 17:25 | Inpatient (IN) | payer BC, MEDICAID ==
[~2019-01-03] VITALS: Ht 167.6 cm; Wt 94.5 kg
[~2019-01-03 17:25] MED LIST changes: +AMLO5TAB88 PO; +ATOR20TA65 PO; +COR25 PO; +GLIP10TA10 PO; -ISOS1TAB PO; +LATA2.5D2 OP; -LOSA50TA3 PO; +METF500T PO; -NIFE30TA83 PO; -P20 PO; -SPIR25TA PO
[2019-01-03] MEDS ORDERED: PREDNISONE 20MG TABLET PO ONE (18:00)
[2019-01-03] MEDS ORDERED: CLONIDINE 0.2MG TABLET PO ONE (18:00)
[2019-01-03] MEDS ORDERED: NITROGLYCERIN OINT 1GM/INCH UDPKT TD ONE (18:00)
[2019-01-03] MEDS ORDERED: FUROSEMIDE 100MG/10ML VIAL IVP ONE (18:15)
[2019-01-03 18:30] LABS: BASOPHILS % 0.7 % (0.0-2.0); EOSINOPHILS % 1.6 % (0.0-5.0); HEMATOCRIT. 38.5 % (36.0-48.0); LYMPHOCYTES % 37.9 % (20.0-50.0); MEAN CORPUSCULAR HEMOGLOBIN 27.3 pg (28.0-32.0); MEAN CORPUSCULAR VOLUME 80.9 fL (81.0-99.0); MEAN PLATELET VOLUME 10.4 fl (7.4-10.4); MONOCYTES % 4.8 % (2.0-8.0); PLATELET 141 x1000/uL (130-400); RED BLOOD CELL COUNT 4.76 mill/uL (4.2-5.4)
[2019-01-03 18:36] LABS: CHLORIDE 106 mEq/L (98-107)
[2019-01-03] MEDS ORDERED: IPRATROPIUM/ALBUTEROL 0.5-3(2.5)MG/3ML NEB HHN PRN (20:45)
[2019-01-03] MEDS ORDERED: MAGNESIUM/ALUMINUM HYDROXIDE/SIMETHICONE 30ML UDC PO PRN (20:45)
[2019-01-03] MEDS ORDERED: ONDANSETRON HCL 4MG/2ML INJ IV PRN (20:45)
[2019-01-03] MEDS ORDERED: HYDROCODONE/ACETAMINOPHEN 10/325MG TABLET PO PRN (20:45)
[2019-01-03 22:37] LABS: CLARITY URINE CLEAR (CLEAR); COLOR URINE YELLOW (YELLOW); KETONES URINE NEGATIVE (NEGATIVE); LEUKOCYTE ESTERASE URINE NEGATIVE (NEGATIVE); NITRITE URINE NEGATIVE (NEGATIVE); OCCULT BLOOD URINE NEGATIVE (NEGATIVE); PROTEIN URINE 3+ (NEGATIVE); SPECIFIC GRAVITY URINE 1.015 (1.005-1.030); UROBILINOGEN URINE 0.2 E.U./dL (0.2-1.0)
[2019-01-03 22:52] LABS: *AMPHETAMINES SCREEN URINE NEGATIVE (NEGATIVE); *BARBITURATES SCREEN URINE NEGATIVE (NEGATIVE); *BENZODIAZEPINES SCREEN URINE NEGATIVE (NEGATIVE); *COCAINE SCREEN URINE NEGATIVE (NEGATIVE); METHADONE URINE SCREEN NEGATIVE (NEGATIVE); OPIATES URINE SCREEN NEGATIVE (NEGATIVE)
[2019-01-03 22:53] LABS: CANNABINOID URINE SCREEN NEGATIVE (NEGATIVE); PHENCYCLIDINE URINE SCREEN NEGATIVE (NEGATIVE)
[2019-01-03 22:59] VITALS: BP 177/110
[2019-01-03] MEDS ORDERED: ISOS30TA12 MT (23:31)
[2019-01-03] MEDS ORDERED: CLON0.1T MT (23:31)
[2019-01-03] MEDS ORDERED: DEXTROSE 50% WATER 50ML SYRINGE IV PRN (23:45)
[2019-01-04] VITALS: BP 166/111
[2019-01-04] MEDS: CLONIDINE 0.1MG TABLET PO PRN ×3 (00:03→18:11)
[2019-01-04] MEDS: AZITHROMYCIN 500 MG TABLET PO SCH ×2 (00:06→23:03)
[2019-01-04 02:35] LABS: CREATINE KINASE MB FRACTION 1.6 ng/mL (0.5-3.6)
[2019-01-04 04:00] VITALS: BP 151/96
[2019-01-04] MEDS: BLOOD SUGAR DIAGNOSTIC STRIP TEST SCH ×4 (06:51→20:53)
[2019-01-04] MEDS: METHYLPREDNISOLONE SOD SUCC 40 MG/ML VIAL IV SCH ×3 (06:51→21:22)
[2019-01-04] MEDS: FUROSEMIDE 40MG/4ML VIAL IV SCH ×2 (08:47→18:10)
[2019-01-04] MEDS: ENOXAPARIN 30MG/0.3ML SYR SUBCUT SCH ×2 (08:48→20:41)
[2019-01-04] MEDS: INSULIN LISPRO 100 UNITS/ML SUBCUT SCH ×4 (08:50→21:29)
[2019-01-04] MEDS ORDERED: BUDESONIDE 0.5MG/2ML NEB HHN SCH (09:00)
[2019-01-04] MEDS: ACETAMINOPHEN 325MG TABLET PO PRN (09:01)
[2019-01-04 09:12] VITALS: BP 185/116
[2019-01-04 12:40] VITALS: BP 171/108
[2019-01-04] MEDS: LOSARTAN POTASSIUM 25 MG TABLET PO SCH (14:50)
[2019-01-04 16:15] VITALS: BP 163/100
[2019-01-04 17:02] LABS: BASOPHILS % 0.2 % (0.0-2.0); EOSINOPHILS % 0.1 % (0.0-5.0); HEMATOCRIT. 40.3 % (36.0-48.0); LYMPHOCYTES % 16.7 % (20.0-50.0); MEAN CORPUSCULAR HEMOGLOBIN 26.5 pg (28.0-32.0); MEAN CORPUSCULAR VOLUME 82.2 fL (81.0-99.0); MEAN PLATELET VOLUME 10.6 fl (7.4-10.4); MONOCYTES % 1.6 % (2.0-8.0); NEUTROPHILS % 81.4 % (40.0-76.0); PLATELET 131 x1000/uL (130-400); RED CELL DISTRIBUTION WIDTH 14.1 % (11.6-14.6)
[2019-01-04 17:18] LABS: LDL CHOLESTEROL 87 mg/dL (5-100)
[2019-01-04 17:19] LABS: CREATINE KINASE 87 IU/L (26-192); HDL CHOLESTEROL 34 mg/dL (40-59)
[2019-01-04] MEDS ORDERED: POTASSIUM CHLORIDE 20MEQ TABLET SR PO NR (17:20)
[2019-01-04 17:21] LABS: CREATINE KINASE MB FRACTION 1.5 ng/mL (0.5-3.6)
[2019-01-04 20:00] VITALS: BP 182/101
[2019-01-04] MEDS: ATORVASTATIN CALCIUM 20MG TABLET PO SCH (20:41)
[2019-01-04] MEDS: CARVEDILOL 12.5MG TABLET PO SCH (20:43)
[2019-01-04] MEDS: HYDRALAZINE HCL 25MG TABLET PO SCH (21:22)
[2019-01-04] MEDS ORDERED: INSULIN LISPRO 100 UNITS/ML SUBCUT NR (22:45)
[2019-01-05] VITALS: BP 181/104
[2019-01-05] MEDS: CLONIDINE 0.1MG TABLET PO PRN ×2 (01:27→09:09)
[2019-01-05 04:00] VITALS: BP 160/99
[2019-01-05] MEDS: METHYLPREDNISOLONE SOD SUCC 40 MG/ML VIAL IV SCH (05:37)
[2019-01-05] MEDS: HYDRALAZINE HCL 25MG TABLET PO SCH ×3 (05:38→22:25)
[2019-01-05] MEDS: BLOOD SUGAR DIAGNOSTIC STRIP TEST SCH ×4 (05:48→21:00)
[2019-01-05 08:00] VITALS: BP 162/101
[2019-01-05] MEDS: CARVEDILOL 12.5MG TABLET PO SCH ×2 (09:08→22:24)
[2019-01-05] MEDS: FUROSEMIDE 40MG/4ML VIAL IV SCH ×2 (09:08→17:39)
[2019-01-05] MEDS: ENOXAPARIN 30MG/0.3ML SYR SUBCUT SCH ×2 (09:09→22:25)
[2019-01-05] MEDS: LOSARTAN POTASSIUM 25 MG TABLET PO SCH (09:09)
[2019-01-05] MEDS: INSULIN LISPRO 100 UNITS/ML SUBCUT SCH ×4 (09:16→22:32)
[2019-01-05] MEDS: ACETAMINOPHEN 325MG TABLET PO PRN (09:30)
[2019-01-05 12:00] VITALS: BP 158/93
[2019-01-05] MEDS ORDERED: INSULIN GLARGINE UD 100 UNITS/ML SYR SUBCUT NR (15:30)
[2019-01-05 16:00] VITALS: BP 156/91
[2019-01-05 20:00] VITALS: BP 158/98
[2019-01-05] MEDS: ATORVASTATIN CALCIUM 20MG TABLET PO SCH (22:24)
[2019-01-06] VITALS: BP 151/95
[2019-01-06] MEDS: AZITHROMYCIN 500 MG TABLET PO SCH (00:22)
[2019-01-06 04:00] VITALS: BP 151/100
[2019-01-06] MEDS: HYDRALAZINE HCL 25MG TABLET PO SCH ×3 (06:09→21:46)
[2019-01-06] MEDS: BLOOD SUGAR DIAGNOSTIC STRIP TEST SCH ×4 (06:26→21:53)
[2019-01-06] MEDS: PREDNISONE 20MG TABLET PO SCH ×2 (08:08→17:37)
[2019-01-06] MEDS: ENOXAPARIN 30MG/0.3ML SYR SUBCUT SCH ×2 (08:09→21:45)
[2019-01-06] MEDS: INSULIN LISPRO 100 UNITS/ML SUBCUT SCH ×4 (08:21→21:52)
[2019-01-06] MEDS: CARVEDILOL 12.5MG TABLET PO SCH ×2 (08:21→09:47)
[2019-01-06] MEDS: FUROSEMIDE 40MG/4ML VIAL IV SCH (08:23)
[2019-01-06] MEDS: LOSARTAN POTASSIUM 100 MG TABLET PO SCH ×2 (08:23→09:48)
[2019-01-06 09:00] VITALS: BP 145/92
[2019-01-06] MEDS ORDERED: FUROSEMIDE 40MG/4ML VIAL IV SCH (10:15)
[2019-01-06 12:00] VITALS: BP 151/93
[2019-01-06 16:00] VITALS: BP 144/91
[2019-01-06 20:00] VITALS: BP 125/65
[2019-01-06] MEDS: ATORVASTATIN CALCIUM 20MG TABLET PO SCH (21:45)
[2019-01-06] MEDS: INSULIN GLARGINE UD 100 UNITS/ML SYR SUBCUT SCH (22:27)
[2019-01-07] VITALS (7 sets, daily range): BP systolic 111–168; BP diastolic 80–112
[2019-01-07] MEDS: AZITHROMYCIN 500 MG TABLET PO SCH (00:05)
[2019-01-07] MEDS: BLOOD SUGAR DIAGNOSTIC STRIP TEST SCH ×4 (07:02→21:00)
[2019-01-07] MEDS: HYDRALAZINE HCL 25MG TABLET PO SCH ×3 (07:02→22:20)
[2019-01-07] MEDS: PREDNISONE 20MG TABLET PO SCH ×2 (09:15→17:40)
[2019-01-07] MEDS: INSULIN LISPRO 100 UNITS/ML SUBCUT SCH ×4 (09:17→22:19)
[2019-01-07] MEDS: CARVEDILOL 12.5MG TABLET PO SCH ×2 (09:19→23:06)
[2019-01-07] MEDS: ENOXAPARIN 30MG/0.3ML SYR SUBCUT SCH ×2 (09:20→22:20)
[2019-01-07] MEDS: FUROSEMIDE 40MG TABLET PO SCH (09:27)
[2019-01-07 09:57] LABS: PHOSPHORUS 4.6 mg/dL (2.5-4.9)
[2019-01-07] MEDS: INSULIN GLARGINE UD 100 UNITS/ML SYR SUBCUT SCH ×2 (10:26→22:23)
[2019-01-07] MEDS ORDERED: GUAIFENESIN-DM 200MG-20MG/10ML UDC PO PRN (15:15)
[2019-01-07 16:15] LABS: BASOPHILS % 0.5 % (0.0-2.0); HEMATOCRIT. 39.6 % (36.0-48.0); HEMOGLOBIN. 12.9 g/dL (12.0-16.0); LYMPHOCYTES % 16.4 % (20.0-50.0); MEAN CORPUSCULAR HEMOGLOBIN 26.7 pg (28.0-32.0); MEAN CORPUSCULAR VOLUME 81.9 fL (81.0-99.0); MEAN PLATELET VOLUME 10.4 fl (7.4-10.4); MONOCYTES % 4.4 % (2.0-8.0); NEUTROPHILS % 78.7 % (40.0-76.0); PLATELET 125 x1000/uL (130-400); RED BLOOD CELL COUNT 4.83 mill/uL (4.2-5.4); RED CELL DISTRIBUTION WIDTH 14.3 % (11.6-14.6)
[2019-01-07] MEDS: CLONIDINE 0.1MG TABLET PO PRN (16:34)
[2019-01-07] MEDS: ATORVASTATIN CALCIUM 20MG TABLET PO SCH (22:20)
[2019-01-08] VITALS: BP 164/92
[2019-01-08] MEDS: AZITHROMYCIN 500 MG TABLET PO SCH (00:15)
[2019-01-08] MEDS: CLONIDINE 0.1MG TABLET PO PRN (00:31)
[2019-01-08 04:00] VITALS: BP 151/95
[2019-01-08] MEDS: HYDRALAZINE HCL 25MG TABLET PO SCH ×2 (06:00→13:46)
[2019-01-08] MEDS: BLOOD SUGAR DIAGNOSTIC STRIP TEST SCH ×3 (06:04→18:08)
[2019-01-08 06:44] LABS: BASOPHILS % 0.2 % (0.0-2.0); HEMATOCRIT. 40.2 % (36.0-48.0); HEMOGLOBIN. 13.4 g/dL (12.0-16.0); LYMPHOCYTES % 19.5 % (20.0-50.0); MEAN CORPUSCULAR HEMOGLOBIN 27.1 pg (28.0-32.0); MEAN CORPUSCULAR VOLUME 81.4 fL (81.0-99.0); MEAN PLATELET VOLUME 10.7 fl (7.4-10.4); MONOCYTES % 5.2 % (2.0-8.0); NEUTROPHILS % 75.1 % (40.0-76.0); PLATELET 131 x1000/uL (130-400); RED BLOOD CELL COUNT 4.94 mill/uL (4.2-5.4); RED CELL DISTRIBUTION WIDTH 14.2 % (11.6-14.6)
[2019-01-08 07:56] VITALS: BP 157/102
[2019-01-08] MEDS: LOSARTAN POTASSIUM 100 MG TABLET PO SCH (08:22)
[2019-01-08] MEDS: FUROSEMIDE 40MG TABLET PO SCH (08:22)
[2019-01-08] MEDS: DOCUSATE SODIUM 100MG CAPSULE PO PRN ×2 (08:23→18:16)
[2019-01-08] MEDS: ENOXAPARIN 30MG/0.3ML SYR SUBCUT SCH (08:24)
[2019-01-08] MEDS: INSULIN LISPRO 100 UNITS/ML SUBCUT SCH ×3 (08:33→18:17)
[2019-01-08] MEDS: CARVEDILOL 12.5MG TABLET PO SCH (09:00)
[2019-01-08] MEDS ORDERED: PREDNISONE 20MG TABLET PO SCH (09:00)
[2019-01-08] MEDS: INSULIN GLARGINE UD 100 UNITS/ML SYR SUBCUT SCH (11:30)
[2019-01-08 12:07] VITALS: BP 159/94
[2019-01-08] MEDS ORDERED: VANCOMYCIN 2,000 MG in DEXT 5% WATER 500 ML IV NR (13:00)
[2019-01-08] MEDS ORDERED: METF-414 MT (15:10)
[2019-01-08] MEDS ORDERED: LOSA100T3 PO (15:10)
[2019-01-08] MEDS ORDERED: DOXY100C2 MT (15:10)
[2019-01-08] MEDS ORDERED: HYDR-4134 PO (15:10)
[2019-01-08] MEDS ORDERED: FURO40TA5 PO (15:10)
[2019-01-08] MEDS ORDERED: P20 PO (15:10)
[2019-01-08] MEDS ORDERED: TUSSL PO (15:10)
[2019-01-08 16:06] VITALS: BP 147/84
[2019-01-09] MEDS ORDERED: VANCOMYCIN 1 G PREMIX 200 ML IV SCH (06:00)
[2019-01-09] MEDS ORDERED: VANCOMYCIN 1250MG in DEXTROSE 5% WATER 250ML IV SCH (07:00)
== END 2019-01-08 19:24 | disposition home or self-care (01) | DRG 682 ==
LOC: ER 17:25 → 6WST 19:21 → ENRESERV 20:48
PROVIDERS: ADMIT Internal Medicine; ATTEND Internal Medicine
DX: N17.9 Acute kidney failure, unspecified (principal); I50.23 Acute on chronic systolic (congestive) heart failure; I13.0 Hypertensive heart and chronic kidney disease with heart failure and stage 1 through stage 4 chronic kidney disease, or unspecified chronic kidney disease; J44.0 Chronic obstructive pulmonary disease with (acute) lower respiratory infection; J44.1 Chronic obstructive pulmonary disease with (acute) exacerbation; I42.9 Cardiomyopathy, unspecified; E11.22 Type 2 diabetes mellitus with diabetic chronic kidney disease; E11.319 Type 2 diabetes mellitus with unspecified diabetic retinopathy without macular edema; I50.9 Heart failure, unspecified; F41.9 Anxiety disorder, unspecified; J20.9 Acute bronchitis, unspecified; E11.65 Type 2 diabetes mellitus with hyperglycemia; E78.5 Hyperlipidemia, unspecified; N18.9 Chronic kidney disease, unspecified; Z86.73 Personal history of transient ischemic attack (TIA), and cerebral infarction without residual deficits; Z91.19 Patient's noncompliance with other medical treatment and regimen; Z79.899 Other long term (current) drug therapy; Z87.891 Personal history of nicotine dependence; Z90.49 Acquired absence of other specified parts of digestive tract; Z88.8 Allergy status to other drugs, medicaments and biological substances; Z79.4 Long term (current) use of insulin; Z98.891 History of uterine scar from previous surgery
CPT/HCPCS: 36415; 71045; 80048; 80061; 80305; 81003; 82550; 82553; 82962; 83036; 83735; 83880; 84100; 84145; 84443; 84484; 87070; 87077; 93005; 93306; 93970; 94640; 96374; 99291; J1650; J1815; J1940; J2920; J3370; J7060; J7512; J7620

== ENCOUNTER 2019-01-10 18:09 | Emergency (ER) | payer BC, MEDICAID ==
[~2019-01-10] VITALS: Ht 167.6 cm; Wt 95.0 kg
[~2019-01-10 18:09] MED LIST changes: +DOXY100C2 MT; -FURO10VI3 PO; +FURO40TA5 PO; +HYDR-4134 PO; +LOSA100T3 PO; +METF-414 MT; -METF500T PO; +P20 PO; -POTA20TA82 PO; +TUSSL PO
[2019-01-10 20:06] LABS: BASOPHILS % 0.6 % (0.0-2.0); EOSINOPHILS % 0.2 % (0.0-5.0); HEMATOCRIT. 43.3 % (36.0-48.0); HEMOGLOBIN. 13.9 g/dL (12.0-16.0); LYMPHOCYTES % 15.8 % (20.0-50.0); MEAN CORPUSCULAR HEMOGLOBIN 26.4 pg (28.0-32.0); MEAN CORPUSCULAR VOLUME 82.3 fL (81.0-99.0); MEAN PLATELET VOLUME 10.8 fl (7.4-10.4); MONOCYTES % 2.2 % (2.0-8.0); NEUTROPHILS % 81.2 % (40.0-76.0); PLATELET 152 x1000/uL (130-400); RED BLOOD CELL COUNT 5.26 mill/uL (4.2-5.4); RED CELL DISTRIBUTION WIDTH 14.3 % (11.6-14.6)
[2019-01-10 20:08] LABS: CHLORIDE 105 mEq/L (98-107)
[2019-01-10 20:11] LABS: INR 1.6; PROTHROMBIN TIME 16.1 sec (9.6-11.0)
[2019-01-10 20:12] LABS: ETHANOL BLOOD < 10 mg/dL
[2019-01-10] MEDS ORDERED: GUAIFENESIN/CODEINE 200-20MG/10ML UDC PO ONE (23:15)
[2019-01-11 00:02] LABS: CLARITY URINE CLEAR (CLEAR); COLOR URINE YELLOW (YELLOW); KETONES URINE NEGATIVE (NEGATIVE); LEUKOCYTE ESTERASE URINE NEGATIVE (NEGATIVE); NITRITE URINE NEGATIVE (NEGATIVE); OCCULT BLOOD URINE NEGATIVE (NEGATIVE); PH URINE 6.5 (4.5-8.0); PROTEIN URINE 2+ (NEGATIVE); SPECIFIC GRAVITY URINE 1.029 (1.005-1.030); UROBILINOGEN URINE 0.2 E.U./dL (0.2-1.0)
[2019-01-11 00:21] LABS: *BARBITURATES SCREEN URINE NEGATIVE (NEGATIVE); *BENZODIAZEPINES SCREEN URINE NEGATIVE (NEGATIVE); *COCAINE SCREEN URINE NEGATIVE (NEGATIVE); METHADONE URINE SCREEN NEGATIVE (NEGATIVE)
[2019-01-11 00:22] LABS: *AMPHETAMINES SCREEN URINE NEGATIVE (NEGATIVE); CANNABINOID URINE SCREEN NEGATIVE (NEGATIVE); OPIATES URINE SCREEN NEGATIVE (NEGATIVE); PHENCYCLIDINE URINE SCREEN NEGATIVE (NEGATIVE)
[2019-01-11 00:27] LABS: BETA HYDROXYBUTYRATE 0.1 mMol/L (0.0-0.3)
[2019-01-11] MEDS ORDERED: HYDRALAZINE 20MG/ML VIAL IV ONE (01:45)
[2019-01-11] MEDS ORDERED: CLONIDINE 0.2MG TABLET PO ONE (03:00)
[2019-01-11 05:19] VITALS: BP 171/112
== END 2019-01-11 06:22 | disposition home or self-care (01) ==
LOC: ER 18:09
DX: I11.0 Hypertensive heart disease with heart failure (principal); I50.9 Heart failure, unspecified; R05 Cough; R07.89 Other chest pain; F41.9 Anxiety disorder, unspecified; J45.909 Unspecified asthma, uncomplicated; J44.9 Chronic obstructive pulmonary disease, unspecified; Z90.49 Acquired absence of other specified parts of digestive tract; Z98.890 Other specified postprocedural states; Z79.899 Other long term (current) drug therapy; Z88.8 Allergy status to other drugs, medicaments and biological substances
CPT/HCPCS: 36415; 71045; 80053; 80305; 80320; 81003; 81025; 82010; 83690; 83880; 84484; 85025; 85610; 93005; 99284; J0360; G0480